=== PATIENT | female | born 1990 | race Hispanic/Latino ===

== ENCOUNTER 2021-09-19 09:02 | Day surgery (SDC) | payer BC ==
[2021-09-17 11:21] LABS: BASOPHILS % (AUTO) 0.2 % (0.0-5.0); EOSINOPHILS % (AUTO) 1.2 % (0.0-8.0); HEMATOCRIT 43.9 % (36-48); LYMPHOCYTES % (AUTO) 19.3 % (21.0-51.0); MEAN CORPUSCULAR HEMOGLOBIN 28.4 pg (27.0-33.0); MEAN CORPUSCULAR HGB CONC 31.7 g/dL (32.0-36.0); MEAN CORPUSCULAR VOLUME 89.8 fL (79-99); NEUTROPHILS % (AUTO) 72.8 % (40.0-77.0); PLATELET COUNT (AUTO) 249 K/uL (130-400); RED BLOOD CELL COUNT(AUTO) 4.89 MIL/uL (4.00-5.50); RED CELL DISTRIBUTION WIDTH 12.5 % (11.0-15.5); WHITE BLOOD COUNT (AUTO) 8.2 K/uL (4.8-10.8)
[2021-09-18 08:09] VITALS: BP 118/65
[2021-09-19] VITALS (21 sets, daily range): BP systolic 109–131; BP diastolic 62–85
[~2021-09-19] VITALS: Ht 162.6 cm; Wt 63.9 kg
[~2021-09-19 09:02] MED LIST: ALBU8.5H8 IH; IBUP-2070 PO; LACTATED RINGERS 1000ML 1,000 ML IV SCH
[2021-09-19] MEDS ORDERED: FENTANYL CITRATE PF 50 MCG/1 ML 2ML VIAL ONE (10:10)
[2021-09-19] MEDS ORDERED: LIDOCAINE PF 100MG/5ML (2%) SYRINGE 5ML ONE (10:10)
[2021-09-19] MEDS ORDERED: PROPOFOL 10 MG/ML 20ML VIAL IV ONE (10:10)
[2021-09-19] MEDS ORDERED: SUCCINYLCHOLINE 200MG/10ML SYR ONE (10:10)
[2021-09-19] MEDS ORDERED: MIDAZOLAM HCL 1 MG/ML 2ML VIAL ONE (10:10)
[2021-09-19] MEDS ORDERED: ROCURONIUM 10MG/1ML SYR 10 MG/ML ML ONE (10:10)
[2021-09-19] MEDS ORDERED: GLYCOPYRROLATE 1 MG/5 ML SYRINGE ONE (11:00)
[2021-09-19] MEDS ORDERED: NEOSTIGMINE 5MG/5ML SYR IV ONE (11:00)
[2021-09-19] MEDS ORDERED: MEPERIDINE-PF 25 MG/ML SYG ONE ×2 (11:23→11:39)
[2021-09-19] MEDS ORDERED: ONDANSETRON 4MG INJ ONE (11:23)
[2021-09-19] MEDS ORDERED: METOCLOPRAMIDE 10 MG/2 ML VIAL ONE (12:21)
[2021-09-19] MEDS ORDERED: KETOROLAC 30MG VIAL (30MG/ML) ONE (12:44)
== END 2021-09-19 13:20 | disposition home or self-care (01) ==
LOC: DAH 09:02
PROVIDERS: ATTEND Specialist
DX: Z30.2 Encounter for sterilization (principal); Z20.822 Contact with and (suspected) exposure to COVID-19; Z79.899 Other long term (current) drug therapy
CPT/HCPCS: 36415; 58671; 84703; 85025; 86850; 86900; 86901; 87635; A4215 ×2; A4216; A4221; A4222; A4223 ×2; A4351; A4663; A6260; C1769 ×3; C9803; J0330; J1885; J2001; J2175 ×2; J2250; J2405; J2704; J2710; J2765; J3010; J3490; J7030; J7120

== ENCOUNTER 2024-08-19 08:26 | Emergency (ER) | payer BC ==
[~2024-08-19] VITALS: Ht 167.6 cm; Wt 62.6 kg
[~2024-08-19 08:26] MED LIST changes: -LACTATED RINGERS 1000ML 1,000 ML IV SCH
--- NOTE | 2024-08-19 08:37 | ERN ---
General Chief Complaint: Mechanical Fall Stated Complaint: FAINTED SPELLS Time Seen by MD: 08:29 History of Present Illness Initial Comments 33-year-old female who presents for syncopal episode and head injury last night. Patient reports she has been in her normal state of health. Around 4:00 a.m. she went to use the restroom. When she was sit up from the restroom she had a fainting spell. She did fall over and bumped her head. Her has been picked her up. She immediately came to. She reports some pain to the left side of her head, but she was a GCS of 15 without any vomiting currently. She was not on her menstrual cycle. She denies any recent illness, vomiting, decreased p.o. intake, urinary symptoms, flu-like illness or other. She reports that during her pregnancies she did have episodes of fainting spell similar to this but has not had one while not . She denies any chest pain, palpitations, dyspnea. I review of systems she does report some recent left leg pain. No swelling. Allergies: Coded Allergies: No Known Allergies (Unverified Allergy, Unknown, 05/02/15) Home Meds Reported Medications Albuterol Sulfate (Proair Hfa) 8.5 Gm Hfa.aer.ad, 2 PUFF IH AD PRN for SHORTNESS OF BREATH 09/18/21 Ibuprofen (Ibuprofen) 600 Mg Tablet, 600 MG PO AD PRN for pain, TAB 09/18/21 Past Medical History Past Medical History: Asthma Past Surgical History: Appendectomy, None Female( History) : 3 Para: 2 ROS Dictation CONSTITUTIONAL: No chills, no fever, no weakness, no diaphoresis, no malaise. HEAD/FACE: No signs of trauma. EENT: No eye pain, no blurred vision, no tearing, no double vision, no ear pain, no ear discharge, no nose pain, no nasal congestion, no throat pain, no throat swelling, no mouth pain. RESPIRATORY: No cough, no orthopnea, no SOB, no stridor, no wheezing. CARDIOVASCULAR: No chest pain, no edema, no palpitations, syncope GASTROINTESTINAL/ABDOMINAL: No abdominal pain, no constipation, no diarrhea, no nausea, no vomiting. GENITOURINARY: No abnormal discharge, no dysuria, no frequent urination, no hematuria. No complaints of pain in the genitals. MUSCULOSKELETAL: No back pain, no gout, no joint pain, no joint swelling, no muscle pain, no muscle stiffness, no neck pain. Left thigh pain INTEGUMENTARY: No change in color, no change in hair/nails, no dryness, no lesion, no lumps, no rash. NEUROLOGICAL/PSYCH: No anxiety, not depressed, no emotional problem, no headache, no numbness, no pre-existing deficit, no history of seizures, no tremors, no weakness. HEMATOLOGIC/LYMPHATIC: Not anemic, no history of blood clots, no apparent ble eding, no bruising, glands not swollen. All Systems Negative, Except as Noted. Physical Exam Physical Exam Dictation VITAL SIGNS: Reviewed. GENERAL APPEARANCE: Alert, oriented x3, no acute distress. HEAD AND FACE: Non-traumatic. EYES: PERRL, pink conjunctivas, eyelid no trauma, anterior chamber clear. EARS: Pinnas intact and no signs of trauma or erythema. Ear canals clear and no discharge. TMs no erythema. NOSE: No discharge, no bleeding. OROPHARYNX: Mouth normal, teeth no caries, tongue pink. Pharynx clear, no erythema. Tonsils no exudates, no abscesses noted. Mucous membrane moist. NECK: Supple, non-tender, no thyromegaly, no masses, no JVD, no bruits. BREAST: Deferred. CHEST: No tenderness, no crepitus, no paradoxical movement, no retractions. LUNGS: Clear, well-ventilated, symmetric, no rales, no wheezing, no rhonchi, no stridor, good breath sounds bilaterally. HEART: Regular rate, regular rhythm, no murmur, no gallops. VASCULAR: No peripheral edema. ABDOMEN: Soft, positive bowel sounds, nondistended, no guarding, nontender, no rebound, no masses no hepatomegaly, no splenomegaly, no Yepez's sign, no hernias. RECTAL: Deferred. GENITAL: Deferred. NEUROLOGICAL: Normal speech, gross motor function intact, gross sensory function intact. MUSCULOSKELETAL: Neck nontender, full range of motion, back nontender, full range of motion. EXTREMITIES: Nontender, full range of motion. SKIN: Color pink, dry, no turgor, no rash, no lacerations, no abrasions, no contusions. LYMPHATICS: Deferred. Results Laboratory and Microbiology Lab and Micro Result Laboratory Tests Test 08/19/24 08:44 08/19/24 09:00 Urine Color LIGHT-YELLOW (YELLOW) Urine Appearance CLEAR (CLEAR) Urine pH 7.5 (5.0-8.0) Urine Specific [place] 1.008 (1.001-1.031) Urine Protein NEGATIVE mg/dL (NEGATIVE) Urine Glucose (UA) NEGATIVE mg/dL (NEGATIVE) Urine Ketones NEGATIVE mg/dL (NEGATIVE) Urine Occult Blood NEGATIVE (NEGATIVE) Urine Nitrate NEGATIVE (NEGATIVE) Urine Bilirubin NEGATIVE mg/dL (NEGATIVE) Urine Urobilinogen 0.2 mg/dL (0.2-1.0) Urine Leukocyte Esterase NEGATIVE Alexus/uL White Blood Count 6.7 K/uL (4.8-10.8) Red Blood Count 4.61 MIL/uL (4.00-5.50) Hemoglobin 12.3 g/dL (12.0-16.0) Hematocrit 38.0 % (36-48) Mean Corpuscular Volume 82.4 fL (79-99) Mean Corpuscular Hemoglobin 26.7 pg (27.0-33.0) L Mean Corpuscular Hemoglobin Concent 32.4 g/dL (32.0-36.0) Red Cell Distribution Width 14.7 % (11.0-15.5) Platelet Count 308 K/uL (130-400) Mean Platelet Volume 11.1 fL (7.5-10.5) H Immature Granulocyte % (Auto) 0.3 % (0-1) Neutrophils (%) (Auto) 75.1 % (40.0-77.0) Lymphocytes (%) (Auto) 17.3 % (21.0-51.0) L Monocytes (%) (Auto) 6.0 % (3.0-13.0) Eosinophils (%) (Auto) 0.9 % (0.0-8.0) Basophils (%) (Auto) 0.4 % (0.0-5.0) Neutrophils # (Auto) 5.0 K/uL (1.8-7.7) Lymphocytes # (Auto) 1.2 K/uL (1.0-4.8) Monocytes # (Auto) 0.4 K/uL (0.1-1.0) Eosinophils # (Auto) 0.06 K/uL (0.00-0.70) Basophils # (Auto) 0.03 K/uL (0.00-0.20) Absolute Immature Granulocyte (auto 0.02 K/uL (0-1) Nucleated Red Blood Cells 0.0 % (0.0-0.19) D-Dimer Quantitative (PE/DVT) 184 ng/mL (0-500) Sodium Level 138 mmol/L (136-145) Potassium Level 3.6 mmol/L (3.5-5.1) Chloride Level 102 mmol/L (101-111) Carbon Dioxide Level 30 mmol/L (21-32) Blood Urea Nitrogen 10 mg/dL (7-18) Creatinine 0.7 mg/dL (0.5-1.0) Glomerular Filtration Rate Calc 116 mL/min (>90) Random Glucose 107 mg/dL (70-105) H Hemoglobin A1c 5.1 % (4.0-6.0) Estimated Average Glucose (eAG) 100 mg/dL (70-126) Total Calcium 8.8 mg/dL (8.5-10.1) Total Creatine Kinase 184 U/L (21-232) Troponin I High Sensitivity < 4.0 ng/L (4-50) L Serum Test, Qualitative NEGATIVE (NEGATIVE) MDM CC: Syncope Historian: Patient Comorbidities: Denies Limitations by social determinants of health: None Differential diagnosis: Cardiac syncope, vasovagal syncope, head injury, anemia, dehydration, flu-like illness, pulmonary embolism, other. Vital signs: Stable. Clinical exam: Unremarkable. Normal cardiac exam, normal neurologic exam. Nontoxic in appearance. EKG (independently interpreted by me): Sinus rhythm rate of 71 , normal axis, good R-wave progression, intervals are stable, no STEMI. UA: normal Labs (independently interpreted by me): CBC normal. No anemia. BM Pnormal. A1C normal. D-dimer negative. Troponin negative. Serum hcg negative. no red flags in the workup. No signs of cardiac syncope. D-dimer neg, no signs of PE. No anemia or dehydration. No neurologic deficits. Likely benign cause of syncope. We will DC to monitor at home and return as needed. Patient was stable vital signs, normal troponin, normal EKG, no cyanosis during the event, no clinical signs of heart failure or murmurs on exam. No signs of heart disease, CHF, no chest pain or dyspnea. Very low risk based on the workup. We will DC. ED Course Orders Procedure Category Date Status Time Cbc With Differential LAB 08/19/24 Complete 08:33 Cardiac Panel LAB 08/19/24 Complete 08:33 D-Dimer LAB 08/19/24 Complete 08:33 Testing, LAB 08/19/24 Complete Serum Hcg 08:33 Urinalysis Profile LAB 08/19/24 Complete 08:33 Chest 1vw RAD 08/19/24 Logged 08:33 12 Lead Ekg Tracing- EKG 08/19/24 Logged Technical 08:33 0.9%Nacl 1000ml (Ns PHA 08/19/24 Complete 1000ml) 09:00 Basic Metabolic Panel LAB 08/19/24 Complete 08:33 Hemoglobin A1c LAB 08/19/24 Complete 08:33 Current Medications Medications (Trade) Dose Ordered Sig/Lary Route PRN Reason Start Time Stop Time Status Last Admin Dose Admin Sodium Chloride 1,000 ml @ 0 mls/hr ONCE ONCE IV 08/19/24 09:00 08/19/24 09:01 DC 08/19/24 09:37 Vital Signs Date Time Temp Pulse Resp B/P (MAP) Pulse Ox O2 Delivery O2 Flow Rate FiO2 08/19/24 08:39 98.6 75 16 136/85 100 Room Air* 0 21 08/19/24 08:30 75 18 136/85 100 Room Air 0 DX & DISP Disposition: Discharge Departure Impression: Primary Impression: Non-cardiac syncope Condition: Stable Additional Instructions: You had a syncopal episode, or brief loss of consciousness. As we discussed, there are many benign causes of syncope. You do not appear to have any dangerous causes at this time. Your vital signs have been stable here in the ER. Your EKG is normal. Your blood work (CBC, BMP, troponin, CK, D-dimer, hCG) is normal. As we discussed, you are very low risk for significant pathology causing your syncopal episode. That said, based on your age, it was recommend that you follow up with your primary doctor because you may need further outpatient studies. Please make an appointment with her primary doctor. Please return to the emergency department if you have any concerning symptoms or further episodes. Referrals: CINTIA JACKSON MD (PCP) ANDRIY THORNTON DO Aug 19, 2024 08:37
[2024-08-19 08:53] LABS: APPEARANCE,URINE CLEAR (CLEAR); BILIRUBIN,URINE NEGATIVE (NEGATIVE); GLUCOSE, URINE (UA) NEGATIVE (NEGATIVE); KETONES,URINE NEGATIVE (NEGATIVE); LEUKOCYTE ESTERASE ,URINE NEGATIVE Leu/uL (NEGATIVE); NITRATE,URINE NEGATIVE (NEGATIVE); OCCULT BLOOD,URINE NEGATIVE (NEGATIVE); PH,URINE 7.5 (5.0-8.0); PROTEIN,URINE NEGATIVE (NEGATIVE); UROBILINOGEN,URINE 0.2 mg/dL (0.2-1.0)
[2024-08-19 08:54] LABS: ADD UA MICROSCOPIC NO; COLOR,URINE LIGHT-YELLOW (YELLOW)
[2024-08-19 09:19] LABS: BASOPHILS # (AUTO) 0.03 K/uL (0.00-0.20); BASOPHILS % (AUTO) 0.4 % (0.0-5.0); EOSINOPHILS # (AUTO) 0.06 K/uL (0.00-0.70); EOSINOPHILS % (AUTO) 0.9 % (0.0-8.0); IMMATURE GRANULOCYTE ABSOLUTE 0.02 K/uL (0-1); LYMPHOCYTES # (AUTO) 1.2 K/uL (1.0-4.8); LYMPHOCYTES % (AUTO) 17.3 % (21.0-51.0); MEAN CORPUSCULAR HEMOGLOBIN 26.7 pg (27.0-33.0); MEAN CORPUSCULAR HGB CONC 32.4 g/dL (32.0-36.0); MEAN CORPUSCULAR VOLUME 82.4 fL (79-99); MONOCYTES # (AUTO) 0.4 K/uL (0.1-1.0); NEUTROPHILS % (AUTO) 75.1 % (40.0-77.0); PLATELET COUNT (AUTO) 308 K/uL (130-400); RED BLOOD CELL COUNT(AUTO) 4.61 MIL/uL (4.00-5.50); RED CELL DISTRIBUTION WIDTH 14.7 % (11.0-15.5); WHITE BLOOD COUNT (AUTO) 6.7 K/uL (4.8-10.8)
[2024-08-19 09:29] LABS: CARBON DIOXIDE 30 mmol/L (21-32); CHLORIDE 102 mmol/L (101-111); CREATININE 0.7 mg/dL (0.5-1.0); GLOMERULAR FILTR. RATE CALC 116 mL/min (>90); GLUCOSE,RANDOM 107 mg/dL (70-105); POTASSIUM 3.6 mmol/L (3.5-5.1); SODIUM SERUM 138 mmol/L (136-145); UREA NITROGEN, BLOOD 10 mg/dL (7-18)
[2024-08-19 09:33] LABS: HEMOGLOBIN A1C 5.1 % (4.0-6.0)
[2024-08-19 09:37] LABS: CREATINE KINASE, TOTAL 184 U/L (21-232)
[2024-08-19] MEDS: 0.9%NACL 1000ML 1,000 ML IV ONE (09:37)
--- NOTE | 2024-08-19 10:06 | EKG ---
[facility] Test Date: 2024-08-19 Test Time: 08:38:06 Pat Name: JOSE J STARKS Department: ED Room: Gender: F Block Paver: 1006 : 1990 Requested By: ANDRIY THORNTON Order Number: [id number] Reading MD: Reinaldo Nettles Measurements Intervals [place] Rate: 71 P: 27 [place]: 110 QRS: 5 QRSD: 104 T: 27 QT: 410 QTc: 444 Interpretive Statements Sinus rhythm No previous ECG available for comparison Electronically Signed On 08-20-2024 17:37:11 [employer] by Reinaldo Nettles Please click the below link to view image of tracing.
[2024-08-19 10:11] VITALS: BP 134/82; PULSE 72; RESP 16; TEMP 98.6; O2SAT 100
--- NOTE | 2024-08-19 10:54 | HMCIMG ---
Exam Type: CHEST 1VW Clinical Information: SYNCOPE Comparison: None Findings: The lungs are clear of infiltrates. The heart is normal in size. The bony and soft tissue structures of the chest are unremarkable. Impression: Clear lungs.
== END 2024-08-19 10:48 | disposition home or self-care (01) ==
LOC: EDH 08:26
DX: R55 Syncope and collapse (principal); J45.909 Unspecified asthma, uncomplicated; Z79.899 Other long term (current) drug therapy; Z90.49 Acquired absence of other specified parts of digestive tract
CPT/HCPCS: 99284; 96360; 71045; 83036; 82550; 84484; 80048; 84703; 85025; 85378; 81003; 36415; 93005; J7030